=== PATIENT | female | born 1990 | race Caucasian/White ===

== ENCOUNTER 2021-05-20 14:46 | Observation (INO) | payer OTHER ==
[~2021-05-20] VITALS: Ht 180.3 cm; Wt 75.3 kg
[2021-05-20 16:30] LABS: BARBITURATE, URINE NEGATIVE (NEG <=200); BENZODIAZEPINE, URINE NEGATIVE (NEG <=150); CANNABINOID, URINE NEGATIVE (NEG <=50); COCAINE, URINE NEGATIVE (NEG <=150); METHAMPHETAMINES SCREEN,URINE POSITIVE (NEG <=500); OPIATE, URINE POSITIVE (NEG <=100); PHENCYCLIDINE SCREEN,URINE NEGATIVE (NEG <=25); UR TRICYCLIC ANTIDEPRESSANTS NEGATIVE (NEG <=300); URINE AMPHETAMINE POSITIVE (NEG <=500); URINE METHADONE NEGATIVE (NEG <=200); URINE OXYCODONE SCREEN NEGATIVE (NEG <=100); URINE PROPOXYPHENE SCREEN NEGATIVE (NEG <=300)
[2021-05-20 16:33] LABS: BILIRUBIN,URINE NEGATIVE (NEGATIVE); BLOOD, URINE NEGATIVE (NEGATIVE); CLARITY/URINE HAZY (CLEAR); COLOR,URINE YELLOW (YELLOW); GLUCOSE,URINE NEGATIVE (NEGATIVE); KETONES,URINE NEGATIVE (NEGATIVE); LEUKOCYTE ESTERASE ,URINE 2+ (NEGATIVE); NITRITE, URINE NEGATIVE (NEGATIVE); PH,URINE 6.5 (5.0-8.0); PROTEIN URINE NEGATIVE (NEGATIVE); UROBILINOGEN,URINE 0.2 (0.2-1.0)
[2021-05-20 16:34] LABS: BACTERIA,URINE FEW /HPF (None Seen); MUCUS,URINE None Seen /LPF (None Seen); RBC,URINE 0-3 /HPF (0-3); WBC,URINE 20-50 /HPF (0-3)
[2021-05-20] MEDS ORDERED: cefTRIAXone 1 GM in LIDOCAINE 1%, 20 ML MDV 2.1 ML IM ONE (18:45)
[2021-05-20] MEDS ORDERED: cefTRIAXone 1 GM VIAL ONE (18:56)
== END 2021-05-20 21:00 | disposition home or self-care (01) ==
LOC: SPU 14:46
PROVIDERS: ADMIT Obstetrics & Gynecology; ATTEND Obstetrics & Gynecology
DX: O34.83 Maternal care for other abnormalities of pelvic organs, third trimester (principal); N94.10 Unspecified dyspareunia; O26.893 Other specified pregnancy related conditions, third trimester; R30.9 Painful micturition, unspecified; Z3A.30 30 weeks gestation of pregnancy
CPT/HCPCS: 76805; 80307; 81000; 81002; 87086; 96372; G0378; J0696; J2001

== ENCOUNTER 2023-09-21 20:10 | Emergency (ER) | payer MEDICAID, OTHER ==
[~2023-09-21] VITALS: Ht 177.8 cm; Wt 73.5 kg
[~2023-09-21 20:10] MED LIST: CEPH-548 PO; NALO4SPR NS; POLY17PO4 PO
[2023-09-21 20:18] VITALS: BP_SYST 102; PULSE 97; RESP 19; TEMP 98.1; O2SAT 99
[2023-09-21] MEDS ORDERED: PERM60CR4 TP (23:03)
[2023-09-21] MEDS ORDERED: DOXY100T2 PO (23:03)
[2023-09-21] MEDS ORDERED: SILV50CR43 TP (23:03)
[2023-09-21] MEDS: cefTRIAXone 1 GM in LIDOCAINE 1%, 20 ML MDV 2.1 ML IM ONE (23:14)
[2023-09-21] MEDS: SILVER SULFADIAZINE 1%, 25 GM TOPICAL CREAM (SSD) TP ONE (23:14)
[2023-09-21 23:25] VITALS: BP_SYST 102; PULSE 97; RESP 16; TEMP 98.4; O2SAT 99
== END 2023-09-21 23:25 | disposition home or self-care (01) ==
LOC: SED 20:10
DX: L03.114 Cellulitis of left upper limb (principal); B86 Scabies; F17.200 Nicotine dependence, unspecified, uncomplicated; F15.10 Other stimulant abuse, uncomplicated; Z79.899 Other long term (current) drug therapy
CPT/HCPCS: 99283; 96372; J0696; J2001